=== PATIENT | female | born 1995 | race Caucasian/White ===

== ENCOUNTER 2017-08-16 16:26 | Emergency (ER) | payer MEDICAID ==
[~2017-08-16] VITALS: Ht 167.6 cm; Wt 100.7 kg
[~2017-08-16 16:26] MED LIST: DOCU-131 PO; FERR325T18 PO; IBUP-1222 PO; OXYC-302 PO
[2017-08-16 16:40] VITALS: BP 143/74
== END 2017-08-16 17:50 | disposition home or self-care (01) ==
LOC: ED 17:44
DX: J18.9 Pneumonia, unspecified organism (principal)
CPT/HCPCS: 71046; 93005; 99284

== ENCOUNTER 2017-08-20 16:52 | Emergency (ER) | payer MEDICAID ==
[~2017-08-20] VITALS: Ht 167.6 cm; Wt 101.1 kg
[2017-08-20] MEDS ORDERED: LORazepam 1MG TABLET ONE (20:21)
[2017-08-20 20:24] VITALS: BP 110/45
[2017-08-20] MEDS ORDERED: LORazepam 1MG TABLET PO ONE (20:30)
== END 2017-08-20 21:08 | disposition home or self-care (01) ==
LOC: ED 20:35
DX: R06.00 Dyspnea, unspecified (principal); R09.89 Other specified symptoms and signs involving the circulatory and respiratory systems
CPT/HCPCS: 71046; 93005; 99284

== ENCOUNTER 2018-04-09 13:07 | Emergency (ER) | payer MEDICAID ==
[~2018-04-09] VITALS: Ht 170.2 cm; Wt 99.7 kg
[2018-04-09 13:20] VITALS: BP 108/73
[2018-04-09] MEDS ORDERED: ACETAMINOPHEN 325 MG TABLET ONE (13:26)
[2018-04-09] MEDS ORDERED: ACETAMINOPHEN 325 MG TABLET PO ONE (13:30)
[2018-04-09] MEDS ORDERED: HYDROcodone/APAP 5/325 TABLET ONE (13:49)
[2018-04-09] MEDS ORDERED: HYDROcodone/APAP 5/325 TABLET PO ONE (14:00)
== END 2018-04-09 14:30 | disposition home or self-care (01) ==
LOC: ED 14:20
DX: S80.02XA Contusion of left knee, initial encounter (principal); W03.XXXA Other fall on same level due to collision with another person, initial encounter; Y93.89 Activity, other specified; Y92.29 Other specified public building as the place of occurrence of the external cause; Y99.8 Other external cause status
CPT/HCPCS: 99284

== ENCOUNTER 2019-07-07 15:21 | Emergency (ER) | payer MEDICAID ==
[~2019-07-07] VITALS: Ht 170.2 cm; Wt 101.9 kg
[2019-07-07 15:25] VITALS: BP 121/74
--- NOTE | 2019-07-07 15:33 | NUR ---
PATIENT BROUGHT BACK FROM TRIAGE WITH CHIEF COMPLAINT OF RIGHT LOWER DENTAL PAIN WHICH HAS WORSENED THE PAST "FEW" DAYS. PATIENT IS ALERT & ORIENTED BUT STATES IT IS SORE TO SWALLOW.
--- NOTE | 2019-07-07 15:56 | NUR ---
DISCHARGE INSTRUCTIONS REVIEWED
== END 2019-07-07 15:58 | disposition home or self-care (01) ==
LOC: ED 15:40
DX: K02.9 Dental caries, unspecified (principal); R51 Headache; Z72.9 Problem related to lifestyle, unspecified; Z75.9 Unspecified problem related to medical facilities and other health care; Z91.14 Patient's other noncompliance with medication regimen
CPT/HCPCS: 99282